=== PATIENT | female | born 1945 | race Caucasian/White ===

== ENCOUNTER 2020-05-30 17:13 | Inpatient (IN) ==
[2020-05-31] MEDS: *HR* OxyCODONE Immed Rel 5 MG TABLET PO PRN ×2 (15:46→21:26)
[2020-05-31] MEDS ORDERED: Albuterol 2.5 MG/3 ML NEBULIZER ONE (18:45)
[2020-05-31] MEDS ORDERED: Tiotropium 18 MCG inhalation IH ONE (20:08)
[2020-05-31] MEDS: Albuterol 2.5 MG/3 ML NEBULIZER IH SCH (20:46)
[2020-05-31] MEDS: Budesonide/Formoterol 160/4.5 1 PUFF INH IH SCH (20:47)
[2020-05-31] MEDS: Sennosides/Docusate Sodium TABLET PO SCH (21:24)
[2020-05-31] MEDS: Apixaban 5 MG TABLET PO SCH (21:25)
[2020-06-01] MEDS ORDERED: hydrALAZINE 25 MG TABLET PO PRN (00:05)
[2020-06-01] MEDS: methocarbamoL 500 MG TABLET PO PRN (00:19)
[2020-06-01] MEDS: amLODIPine 5 MG TABLET PO SCH ×2 (00:27→09:40)
[2020-06-01] MEDS: *HR* OxyCODONE Immed Rel 5 MG TABLET PO PRN ×3 (04:08→20:30)
[2020-06-01 05:44] LABS: Basophils # 0.1 K/mcL (0.0-0.2); Basophils % 0.9 %; Eosinophils # 0.2 K/mcL (0.0-0.6); Eosinophils % 3.1 %; Hematocrit 36.8 % (35.3-44.9); Hemoglobin 12.6 g/dL (11.5-15.4); Immature Granulocytes % 0.7 % (0-4); Lymphocytes # 1.2 K/mcL (0.6-4.6); Lymphocytes % 19.9 %; Mean Corpuscular HGB Conc 34.2 g/dL (31.6-35.5); Mean Corpuscular Volume 90.6 fL (83.0-100.0); Mean Platelet Volume 9.6 fL (9.4-12.4); Monocytes # 0.6 K/mcL (0.0-1.3); Monocytes % 10.3 %; Neutrophils # 3.8 K/mcL (1.6-8.9); Platelet Count 254 K/mcL (140-400); Red Blood Count 4.06 M/mcL (3.82-4.97); Red Cell Distribution Width 12.7 % (11.5-14.5); Segmented Neutrophils % 65.1 %; White Blood Count 5.8 K/mcL (4.3-11.1)
[2020-06-01 05:58] LABS: BUN/Creatinine Ratio 20 (6-26); Blood Urea Nitrogen 12 mg/dL (8-23); Calcium 8.9 mg/dL (8.6-10.3); Carbon Dioxide 23 mEq/L (23-29); Chloride 102 mEq/L (98-107); Glucose 95 mg/dL (70-105); Osmolality,Calculated 276 (280-300); Potassium 3.7 mEq/L (3.5-5.1); Sodium 133 mEq/L (136-145); eGFR For African Americans > 60 (> 60); eGFR For Non-African Americans > 60 (> 60)
[2020-06-01] MEDS: Tiotropium 18 MCG inhalation IH SCH (09:07)
[2020-06-01] MEDS: Budesonide/Formoterol 160/4.5 1 PUFF INH IH SCH ×2 (09:08→20:54)
[2020-06-01] MEDS: Albuterol 2.5 MG/3 ML NEBULIZER IH SCH ×3 (09:11→20:54)
[2020-06-01] MEDS: Aspirin Enteric Coated 81 MG Tablet PO SCH (09:40)
[2020-06-01] MEDS: Cholecalciferol (D-3) 1,000 UNIT (25MCG) TABLET PO SCH (09:40)
[2020-06-01] MEDS: Apixaban 5 MG TABLET PO SCH ×2 (09:40→20:30)
[2020-06-01] MEDS: Sennosides/Docusate Sodium TABLET PO SCH ×2 (09:40→20:30)
[2020-06-01] MEDS: Metoprolol XL (24 HR) Succ 25 MG TAB.ER.24H PO SCH (09:40)
[2020-06-01 11:47] LABS: Estimated Average Glucose 128 mg/dl; Hemoglobin A1C 6.1 %
[2020-06-02] MEDS: amLODIPine 5 MG TABLET PO SCH (08:09)
[2020-06-02] MEDS: Apixaban 5 MG TABLET PO SCH ×2 (08:09→19:58)
[2020-06-02] MEDS: Sennosides/Docusate Sodium TABLET PO SCH ×2 (08:09→19:58)
[2020-06-02] MEDS: Metoprolol XL (24 HR) Succ 25 MG TAB.ER.24H PO SCH (08:09)
[2020-06-02] MEDS: Cholecalciferol (D-3) 1,000 UNIT (25MCG) TABLET PO SCH (08:09)
[2020-06-02] MEDS: Aspirin Enteric Coated 81 MG Tablet PO SCH (08:09)
[2020-06-02] MEDS: Acetaminophen 325 MG TABLET PO PRN ×3 (08:27→20:00)
[2020-06-02] MEDS: polyethylene glycoL 3350 17 GM POWD.PACK PO PRN (08:27)
[2020-06-02] MEDS: Budesonide/Formoterol 160/4.5 1 PUFF INH IH SCH ×2 (10:00→21:42)
[2020-06-02] MEDS: Tiotropium 18 MCG inhalation IH SCH (10:00)
[2020-06-02] MEDS: Albuterol 2.5 MG/3 ML NEBULIZER IH SCH ×3 (10:00→21:40)
[2020-06-03] MEDS: polyethylene glycoL 3350 17 GM POWD.PACK PO PRN (01:31)
[2020-06-03] MEDS: methocarbamoL 500 MG TABLET PO PRN (01:32)
[2020-06-03] MEDS: amLODIPine 5 MG TABLET PO SCH (07:55)
[2020-06-03] MEDS: Sennosides/Docusate Sodium TABLET PO SCH ×2 (07:55→20:30)
[2020-06-03] MEDS: Metoprolol XL (24 HR) Succ 25 MG TAB.ER.24H PO SCH (07:55)
[2020-06-03] MEDS: Aspirin Enteric Coated 81 MG Tablet PO SCH (07:55)
[2020-06-03] MEDS: Cholecalciferol (D-3) 1,000 UNIT (25MCG) TABLET PO SCH (07:55)
[2020-06-03] MEDS: Apixaban 5 MG TABLET PO SCH ×2 (07:56→20:30)
[2020-06-03] MEDS: Acetaminophen 325 MG TABLET PO PRN (07:58)
[2020-06-03] MEDS: Albuterol 2.5 MG/3 ML NEBULIZER IH SCH ×3 (09:42→21:44)
[2020-06-03] MEDS: Tiotropium 18 MCG inhalation IH SCH (09:55)
[2020-06-03] MEDS: Budesonide/Formoterol 160/4.5 1 PUFF INH IH SCH ×2 (09:56→21:46)
[2020-06-03] MEDS ORDERED: MOM Conc 10 ML UD.LIQ PO PRN (16:44)
[2020-06-03] MEDS: *HR* OxyCODONE Immed Rel 5 MG TABLET PO PRN (20:36)
[2020-06-04] MEDS: Sennosides/Docusate Sodium TABLET PO SCH ×2 (07:55→20:05)
[2020-06-04] MEDS: Cholecalciferol (D-3) 1,000 UNIT (25MCG) TABLET PO SCH (07:55)
[2020-06-04] MEDS: Aspirin Enteric Coated 81 MG Tablet PO SCH (07:56)
[2020-06-04] MEDS: Metoprolol XL (24 HR) Succ 25 MG TAB.ER.24H PO SCH (07:56)
[2020-06-04] MEDS: amLODIPine 5 MG TABLET PO SCH (07:56)
[2020-06-04] MEDS: Apixaban 5 MG TABLET PO SCH ×2 (07:56→20:29)
[2020-06-04] MEDS: *HR* OxyCODONE Immed Rel 5 MG TABLET PO PRN ×2 (08:02→20:05)
[2020-06-04] MEDS: Albuterol 2.5 MG/3 ML NEBULIZER IH SCH ×3 (10:26→21:46)
[2020-06-04] MEDS: Tiotropium 18 MCG inhalation IH SCH (10:26)
[2020-06-04] MEDS: Budesonide/Formoterol 160/4.5 1 PUFF INH IH SCH (10:27)
[2020-06-04] MEDS: methocarbamoL 500 MG TABLET PO PRN (20:04)
[2020-06-05] MEDS: *HR* OxyCODONE Immed Rel 5 MG TABLET PO PRN ×3 (02:08→20:11)
[2020-06-05] MEDS: amLODIPine 5 MG TABLET PO SCH (08:04)
[2020-06-05] MEDS: Apixaban 5 MG TABLET PO SCH ×2 (08:04→20:10)
[2020-06-05] MEDS: Aspirin Enteric Coated 81 MG Tablet PO SCH (08:04)
[2020-06-05] MEDS: Metoprolol XL (24 HR) Succ 25 MG TAB.ER.24H PO SCH (08:04)
[2020-06-05] MEDS: Cholecalciferol (D-3) 1,000 UNIT (25MCG) TABLET PO SCH (08:04)
[2020-06-05] MEDS: Sennosides/Docusate Sodium TABLET PO SCH ×2 (08:05→20:11)
[2020-06-05] MEDS: Albuterol 2.5 MG/3 ML NEBULIZER IH SCH (09:28)
[2020-06-05] MEDS ORDERED: Albuterol 2.5 MG/3 ML NEBULIZER IH PRN (11:59)
[2020-06-06] MEDS: *HR* OxyCODONE Immed Rel 5 MG TABLET PO PRN ×2 (08:14→21:08)
[2020-06-06] MEDS: Aspirin Enteric Coated 81 MG Tablet PO SCH (08:14)
[2020-06-06] MEDS: Cholecalciferol (D-3) 1,000 UNIT (25MCG) TABLET PO SCH (08:14)
[2020-06-06] MEDS: Sennosides/Docusate Sodium TABLET PO SCH ×3 (08:14→20:00)
[2020-06-06] MEDS: Apixaban 5 MG TABLET PO SCH ×2 (08:15→20:00)
[2020-06-06] MEDS: Metoprolol XL (24 HR) Succ 25 MG TAB.ER.24H PO SCH (08:15)
[2020-06-06] MEDS: amLODIPine 5 MG TABLET PO SCH (08:15)
[2020-06-06 10:44] LABS: Basophils # 0.1 K/mcL (0.0-0.2); Basophils % 1.3 %; Eosinophils # 0.2 K/mcL (0.0-0.6); Hematocrit 38.3 % (35.3-44.9); Hemoglobin 12.8 g/dL (11.5-15.4); Immature Granulocytes % 0.5 % (0-4); Lymphocytes % 16.1 %; Mean Corpuscular HGB Conc 33.4 g/dL (31.6-35.5); Mean Corpuscular Hemoglobin 30.8 pg (28.0-33.3); Mean Corpuscular Volume 92.1 fL (83.0-100.0); Mean Platelet Volume 9.1 fL (9.4-12.4); Monocytes # 0.6 K/mcL (0.0-1.3); Monocytes % 9.6 %; Neutrophils # 4.1 K/mcL (1.6-8.9); Platelet Count 341 K/mcL (140-400); Red Blood Count 4.16 M/mcL (3.82-4.97); Red Cell Distribution Width 13.2 % (11.5-14.5); Segmented Neutrophils % 68.5 %
[2020-06-06 10:57] LABS: BUN/Creatinine Ratio 16 (6-26); Blood Urea Nitrogen 12 mg/dL (8-23); Calcium 9.2 mg/dL (8.6-10.3); Carbon Dioxide 26 mEq/L (23-29); Chloride 99 mEq/L (98-107); Glucose 82 mg/dL (70-105); Osmolality,Calculated 271 (280-300); Potassium 4.3 mEq/L (3.5-5.1); Sodium 131 mEq/L (136-145); eGFR For African Americans > 60 (> 60); eGFR For Non-African Americans > 60 (> 60)
[2020-06-07] MEDS: Aspirin Enteric Coated 81 MG Tablet PO SCH (07:54)
[2020-06-07] MEDS: Metoprolol XL (24 HR) Succ 25 MG TAB.ER.24H PO SCH (07:54)
[2020-06-07] MEDS: Sennosides/Docusate Sodium TABLET PO SCH ×2 (07:54→19:52)
[2020-06-07] MEDS: Cholecalciferol (D-3) 1,000 UNIT (25MCG) TABLET PO SCH (07:54)
[2020-06-07] MEDS: methocarbamoL 500 MG TABLET PO PRN ×2 (07:54→23:36)
[2020-06-07] MEDS: Apixaban 5 MG TABLET PO SCH ×2 (07:54→19:53)
[2020-06-07] MEDS: amLODIPine 5 MG TABLET PO SCH (07:54)
[2020-06-07] MEDS: Acetaminophen 325 MG TABLET PO PRN (09:45)
[2020-06-07] MEDS: *HR* OxyCODONE Immed Rel 5 MG TABLET PO PRN (19:53)
[2020-06-08] MEDS: *HR* OxyCODONE Immed Rel 5 MG TABLET PO PRN ×2 (04:05→21:04)
[2020-06-08] MEDS: Apixaban 5 MG TABLET PO SCH ×2 (08:27→21:03)
[2020-06-08] MEDS: Sennosides/Docusate Sodium TABLET PO SCH ×2 (08:27→21:03)
[2020-06-08] MEDS: Aspirin Enteric Coated 81 MG Tablet PO SCH (08:27)
[2020-06-08] MEDS: methocarbamoL 500 MG TABLET PO PRN ×2 (08:27→16:27)
[2020-06-08] MEDS: Metoprolol XL (24 HR) Succ 25 MG TAB.ER.24H PO SCH (08:27)
[2020-06-08] MEDS: amLODIPine 5 MG TABLET PO SCH (08:27)
[2020-06-08] MEDS: Cholecalciferol (D-3) 1,000 UNIT (25MCG) TABLET PO SCH (08:27)
[2020-06-09 06:56] VITALS: BP 155/75
[2020-06-09] MEDS: *HR* OxyCODONE Immed Rel 5 MG TABLET PO PRN (08:45)
[2020-06-09] MEDS: Sennosides/Docusate Sodium TABLET PO SCH (08:46)
[2020-06-09] MEDS: amLODIPine 5 MG TABLET PO SCH (08:46)
[2020-06-09] MEDS: Cholecalciferol (D-3) 1,000 UNIT (25MCG) TABLET PO SCH (08:46)
[2020-06-09] MEDS: Apixaban 5 MG TABLET PO SCH (08:46)
[2020-06-09] MEDS: Metoprolol XL (24 HR) Succ 25 MG TAB.ER.24H PO SCH (08:46)
[2020-06-09] MEDS: Aspirin Enteric Coated 81 MG Tablet PO SCH (08:46)
== END 2020-06-09 11:35 | disposition home health service (06) | DRG 560 ==
LOC: INPGRE 05-31 15:22
PROVIDERS: ADMIT Family Medicine; ATTEND Family Medicine